=== PATIENT | female | born 1970 ===

== ENCOUNTER 2016-11-21 12:35 | Emergency (ER) | payer BC, OTHER ==
[2016-11-21 12:40] VITALS: RESP 18; TEMP 98.3; O2SAT 98
[2016-11-21 13:12] LABS: BASO # 0.1 K/uL (0.0-0.2); BASO % 0.9 % (0.0-2.0); EOS # 0.1 K/uL (0.0-0.7); EOS % 1.2 % (0.0-4.0); HEMATOCRIT 43.1 % (34.0-47.0); LYMPH # 2.3 K/uL (1.0-4.3); LYMPH % 37.5 % (20.0-40.0); MEAN CELL VOLUME 84.3 fl (81.0-99.0); MEAN CORPUSCULAR HEMOGLOBIN 27.3 pg (27.0-31.0); MEAN CORPUSCULAR HGB CONC 32.4 g/dL (33.0-37.0); MEAN PLATELET VOLUME 9.1 fl (7.2-11.7); MONO # 0.5 K/uL (0.0-0.8); MONO % 7.9 % (0.0-10.0); NEUT # 3.2 K/uL (1.8-7.0); NEUT % 52.5 % (50.0-75.0); NRBC % 0.1 % (0.0-0.0); RED CELL DISTRIBUTION WIDTH 13.7 % (11.5-14.5)
--- NOTE | 2016-11-21 13:13 | ED PDOC ---
Syncope/Near Syncope/Dizziness Chief Complaint (Provider): Syncope History Per: Patient History/Exam Limitations: no limitations Onset/Duration Of Symptoms: Hrs (prior to arrival ) Additional Complaint(s): Soheila Romero is a 46 year old female with a past medical history of hypertension and asthma presenting to the ED for an evaluation status post syncopal episode. The patient states she was at work when she felt flushed, feeling a wave of heat causing her to pass out. This episode was witnessed by a coworker who reports the episode was very brief, with no seizure activity. The patient states she had similar episodes occurring twice last year. She denies headache, dizziness, chest pain, or any other medical complaints. PMD: Ray Palacios MD <Bonnie Farnsworth - Last Filed: 11/21/16 15:03> <Anselmo Wynne - Last Filed: 11/21/16 16:46> Time Seen by Provider: 11/21/16 12:45 Chief Complaint (Nursing): Syncope Past Medical History Reviewed: Historical Data, Nursing Documentation, Vital Signs Vital Signs: Last Vital Signs Temp 98.3 F 11/21/16 12:39 Pulse 78 11/21/16 12:39 Resp 18 11/21/16 12:39 BP 162/97 H 11/21/16 13:08 Pulse Ox 98 11/21/16 12:39 - Medical History PMH: Asthma, HTN - Surgical History Surgical History: No Surg Hx - Family History Family History: States: Unknown Family Hx - Social History Current smoker - smoking cessation education provided: No Ex-Smoker (has not smoked in the last 12 months): No Alcohol: None Drugs: Denies <Bonnie Farnsworth - Last Filed: 11/21/16 15:03> Vital Signs: Last Vital Signs Temp 98.3 F 11/21/16 12:39 Pulse 67 11/21/16 15:03 Resp 18 11/21/16 12:39 BP 162/97 H 11/21/16 13:08 Pulse Ox 98 11/21/16 16:03 <Anselmo Wynne - Last Filed: 11/21/16 16:46> - Allergies Allergies/Adverse Reactions: Allergies Allergy/AdvReac Type Severity Reaction Status Date / Time No Known Allergies Allergy Verified 11/21/16 12:42 Review of Systems ROS Statement: Except As Marked, All Systems Reviewed And Found Negative Constitutional: Positive for: Other (syncope ) Cardiovascular: Negative for: Chest Pain Neurological: Negative for: Seizures, Headache, Dizziness <Bonnie Farnsworth - Last Filed: 11/21/16 15:03> Physical Exam - Reviewed Nursing Documentation Reviewed: Yes Vital Signs Reviewed: Yes - Physical Exam Appears: Positive for: Non-toxic, No Acute Distress (comfortable) Head Exam: Positive for: ATRAUMATIC, NORMOCEPHALIC Eye Exam: Positive for: Normal appearance, EOMI, PERRL Neck: Positive for: Normal Cardiovascular/Chest: Positive for: Regular Rate, Rhythm Respiratory: Positive for: Normal Breath Sounds. Negative for: Respiratory Distress Extremity: Positive for: Normal ROM Neurologic/Psych: Positive for: Alert, Oriented <Bonnie Farnsworth - Last Filed: 11/21/16 15:03> - Laboratory Results Result Diagrams: 11/21/16 13:00 11/21/16 13:00 - ECG ECG: Positive for: Interpreted By Me, Viewed By Me ECG Rhythm: Positive for: Normal QRS, Sinus Rhythm (NORMAL). Negative for: ST/ T Changes Rate: 67 O2 Sat by Pulse Oximetry: 98 (RA) Pulse Ox Interpretation: Normal <Bonnie Farnsworth - Last Filed: 11/21/16 15:03> - Laboratory Results Result Diagrams: 11/21/16 13:00 11/21/16 13:00 <Anselmo Wynne - Last Filed: 11/21/16 16:46> Medical Decision Making Medical Decision Making: Time: 12:45 Impression; Syncope Differential diagnosis includes but is not limited to vasovagal syncope, cardiac arrhythmia Plan: * CT Head w/o contrast * ED ekg * BMP * Troponin I * CBC (with differential) * D Dimer [COAG] * Reevaluation 15:00 patient signed over to Anselmo Wynne MD pending CT head. Scribe Attestation: Documented by Tammy Baker, acting as a scribe for Bonnie Farnsworth MD. Provider Scribe Attestation: All medical record entries made by the Scribe were at my direction and personally dictated by me. I have reviewed the chart and agree that the record accurately reflects my personal performance of the history, physical exam, medical decision making, and the department course for this patient. I have also personally directed, reviewed, and agree with the discharge instructions and disposition. <Bonnie Farnsworth - Last Filed: 11/21/16 15:03> Disposition <Bonnie Farnsworth - Last Filed: 11/21/16 15:03> - Patient ED Disposition Is Patient to be Admitted: No Counseled Patient/Family Regarding: Studies Performed, Diagnosis - Disposition Disposition: Routine/Home Disposition Time: 16:00 <Anselmo Wynne - Last Filed: 11/21/16 16:46> - Clinical Impression Clinical Impression: Syncope - Disposition Referrals: Master Gandhi MD [Staff Provider] - (2 to 3 days) Condition: GOOD Instructions: Syncope (ED) Forms: [facility] (Polish)
[2016-11-21 13:24] LABS: BLOOD UREA NITROGEN 17 mg/dl (7-17); CALCIUM 9.5 mg/dL (8.4-10.2); CARBON DIOXIDE 26 mmol/L (22-30); CHLORIDE 105 mmol/L (98-107); GFR AFRICAN-AMERICAN > 60; GLUCOSE,RANDOM 101 mg/dL (65-105); POTASSIUM 3.7 MMOL/L (3.6-5.0); SODIUM 141 mmol/l (132-148)
--- NOTE | 2016-11-21 16:03 | ED PDOC ---
- Laboratory Results Result Diagrams: 11/21/16 13:00 11/21/16 13:00 - ECG O2 Sat by Pulse Oximetry: 98 (RA) Pulse Ox Interpretation: Normal Medical Decision Making Medical Decision Making: Patient signed out to provider at [address] Farnsworth pending CT head. 1400 Patient is currently asymptomatic. CT of the head was performed and results are normal. Normal neuro. Patient is medically stable and will be discharged home with instructions to follow up with PMD. Attestation Scribe Attestation: Documented by Benita Mackey acting as a scribe for Anselmo Wynne MD. Scribe Attestation: All medical record entries made by the Scribe were at my direction and personally dictated by me. I have reviewed the chart and agree that the record accurately reflects my personal performance of the history, physical exam, medical decision making, and the department course for this patient. I have also personally directed, reviewed, and agree with the discharge instructions and disposition. Disposition Counseled Patient/Family Regarding: Studies Performed, Need For Followup - Clinical Impression Clinical Impression: Syncope - POA Present On Arrival: None - Disposition Referrals: Master Gandhi MD [Staff Provider] - (2 to 3 days) Disposition: Routine/Home Disposition Time: 16:00 Condition: GOOD Instructions: Syncope (ED) Forms: Desk (Armenian)
[2016-11-21 17:03] VITALS: PULSE 61
[2016-11-21 17:53] VITALS: BP 148/87
--- NOTE | 2016-11-21 20:01 | CT ---
PROCEDURE: CT HEAD WITHOUT CONTRAST. HISTORY: syncope COMPARISON: None available. TECHNIQUE: Axial computed tomography images were obtained through the head/brain without intravenous contrast. Radiation dose: Total exam DLP = 848.26 mGy-cm. This CT exam was performed using one or more of the following dose reduction techniques: Automated exposure control, adjustment of the mA and/or kV according to patient size, and/or use of iterative reconstruction technique. FINDINGS: HEMORRHAGE: No acute parenchymal, subarachnoid or extra-axial hemorrhage. BRAIN: No mass effect or edema. Questionable minimal chronic periventricular white matter ischemic changes. . VENTRICLES: Unremarkable. No hydrocephalus. CALVARIUM: Unremarkable. PARANASAL SINUSES: Unremarkable as visualized. No significant inflammatory changes. MASTOID AIR CELLS: Unremarkable as visualized. No inflammatory changes. OTHER FINDINGS: None. IMPRESSION: No acute intracranial hemorrhage.
--- NOTE | 2016-11-21 22:04 | CARD ---
APPROVED REPORT EKG Measurement Heart [id number] <Conclusion> Normal sinus rhythm Nonspecific T wave abnormality Abnormal ECG
== END 2016-11-21 17:52 | disposition home or self-care (01) ==
LOC: H.ER 12:35
DX: R55 Syncope and collapse (principal); J45.909 Unspecified asthma, uncomplicated; I10 Essential (primary) hypertension